=== PATIENT | female | born 1970 | race African-American/Black ===

== ENCOUNTER 2016-07-17 22:33 | Emergency (ER) | payer OTHER ==
[2016-07-17 22:35] VITALS: BP 152/90; PULSE 81; RESP 16; TEMP 98.7; O2SAT 97
--- NOTE | 2016-07-17 22:46 | PD ---
Physical Exam Time Seen by Provider: 22:45 Narrative 45 y/o female here with neck pain intermittently for several months, worse for the past few days, as well as increased urinary frequency. Denies dysuria/ abdominal pain. vital signs reviewed. Seen at triage desk. Awaiting bed placement. Data Data Last Documented VS Vital Signs Date Time Temp Pulse Resp B/P Pulse Ox O2 Delivery O2 Flow Rate FiO2 07/17/16 22:35 98.7 81 16 152/90 97 Room Air [facility] Medical Record Reviewed: Yes Supervised Visit with RUPINDER: Byron Layne July 17, 2016 22:46
--- NOTE | 2016-07-17 23:05 | PD ---
HPI Chief Complaint: Complaint Time Seen by Provider: 23:01 Travel History International Travel<30 days: No Contact w/Intl Traveler<30days: No Traveled to known affect area: No History of Present Illness HPI 45-year-old right handed black female [employer] who presents to emergency department with complains of left-sided neck pain into her left shoulder. She states that this is been going on now for several weeks to months. She stated is been worse for the past last week. She has difficulty sleeping and getting comfortable. She also goes on to state that she's been having some urinary frequency and urgency. No dysuria. She has noted some dark urine. No vaginal complains. The patient states that the pain in her neck and shoulder is worse with movement of her head. She feels more comfortable remaining still. The pain radiates into her left shoulder. Pain is sharp and cramping. Moderate in intensity. PFSH Past Medical History Medical History: Denies Significant Hx Immunizations Current: Yes Tetanus Vaccination: < 5 Years ?: Unknown LMP: 07/01/16 : 4 Para: 4 Past Surgical History Surgical History: No Previous Surgery Social History Alcohol Use: No Tobacco Use: No Substance Use: No Allergies-Medications (Allergen,Severity, Reaction): Coded Allergies: No Known Allergies (Unverified , 07/17/16) Reported Meds & Prescriptions Reported Meds & Active Scripts Active Diclofenac Sodium DR (Diclofenac Sodium) 75 Mg Tabdr 75 Mg PO BID Flexeril (Cyclobenzaprine HCl) 10 Mg Tab 10 Mg PO TID Pyridium (Phenazopyridine HCl) 200 Mg Tab 200 Mg PO Q8H PRN Macrobid (Nitrofurantoin Monoh/Nitrofur Macro) 100 Mg Cap 100 Mg PO BID Review of Systems Except as stated in HPI: all other systems reviewed are Neg Physical Exam Narrative GENERAL: Well-developed, well-nourished in no apparent distress. Nontoxic appearing. HEAD: Normocephalic, atraumatic. EYES: Pupils equal round and reactive. Extraocular motions intact. No scleral icterus. No injection or drainage. ENT: Nose clear. Throat without erythema, tonsillar hypertrophy or exudate. Uvula midline. Airway patent. NECK: Trachea midline. Supple, tender left paracervical musculature down into the trapezius and periscapular muscles., moves head freely. No central bony tenderness. Mild spasm. No central bony tenderness. CARDIOVASCULAR: Regular rate and rhythm without murmurs, gallops, or rubs. RESPIRATORY: Clear to auscultation. Breath sounds equal bilaterally. No wheezes , rales, or rhonchi. GASTROINTESTINAL: Abdomen soft, non-tender, nondistended. No hepato-splenomegaly , or palpable masses. No guarding. EXTREMITIES: No clubbing, cyanosis, or edema. No joint tenderness. BACK: Nontender without deformity. No flank tenderness. NEUROLOGICAL: Awake, alert and oriented x 3 .Cranial nerves grossly intact. Motor and sensory grossly within normal limits. Normal speech. Data Data Last Documented VS Vital Signs Date Time Temp Pulse Resp B/P Pulse Ox O2 Delivery O2 Flow Rate FiO2 07/17/16 22:35 98.7 81 16 152/90 97 Room Air Orders Urinalysis - C+S If Indicated (07/17/16 22:53) Spine, Cervical - Ltd (Ap&Lat) (07/17/16 22:56) Ed Urine Pregnancytest Poc (07/17/16 22:56) Labs Laboratory Tests Test 07/17/16 23:05 Urine Color YELLOW Urine Turbidity HAZY Urine pH 5.5 Urine Specific [place] 1.022 Urine Protein NEG mg/dL Urine Glucose (UA) NEG mg/dL Urine Ketones NEG mg/dL Urine Occult Blood NEG Urine Nitrite NEG Urine Bilirubin NEG Urine Urobilinogen LESS THAN 2.0 MG/DL Urine Leukocyte Esterase NEG Urine RBC 1 /hpf Urine WBC 1 /hpf Urine Squamous Epithelial 13 /hpf Cells Urine Bacteria RARE /hpf Urine Mucus FEW /lpf Microscopic Urinalysis Comment CULT NOT INDICATED MDM Medical Decision Making Medical Screen Exam Complete: Yes Emergency Medical Condition: Yes Medical Record Reviewed: Yes Interpretation(s) Cervical spine: Negative for acute fracture. No subluxation. Laboratory Tests Test 07/17/16 23:05 Urine Color YELLOW Urine Turbidity HAZY Urine pH 5.5 Urine Specific [place] 1.022 Urine Protein NEG mg/dL Urine Glucose (UA) NEG mg/dL Urine Ketones NEG mg/dL Urine Occult Blood NEG Urine Nitrite NEG Urine Bilirubin NEG Urine Urobilinogen LESS THAN 2.0 MG/DL Urine Leukocyte Esterase NEG Urine RBC 1 /hpf Urine WBC 1 /hpf Urine Squamous Epithelial 13 /hpf Cells Urine Bacteria RARE /hpf Urine Mucus FEW /lpf Microscopic Urinalysis Comment CULT NOT INDICATED Differential Diagnosis MDM: Cervical strain, spasm, degenerative disc disease, cervical radiculopathy, UTI, vaginitis Narrative Course Cervical spine x-ray performed. Urinalysis collected. Urine hCG test negative. X-ray of the cervical spine shows no acute fracture or subluxation. Minimal DJD. Urinalysis shows squamous cells and small amount of bacteria most likely contamination but we will go ahead and treat the patient for possible cystitis. Diagnosis Primary Impression: neck pain with spasm Additional Impression: Cystitis Patient Instructions: General Instructions Departure Forms: Tests/Procedures, Work Release Special Instructions: No work 3 days. Additional Instructions: Rest. Ice for the next 3 days followed by heat . Pyridium, Macrobid, Flexeril and Voltaren. Follow-up with a primary care doctor in one week. Return to the ER for emergencies. Med/Other Pt SpecificInfo: Prescription(s) given Scripts Diclofenac Sodium DR 75 Mg Tabdr75 Mg PO BID #20 TAB Prov:Onesimo Rascon MD 07/17/16 Cyclobenzaprine (Flexeril)10 Mg Tab10 Mg PO TID #30 TAB Prov:Onesimo Rascon MD 07/17/16 Phenazopyridine (Pyridium)200 Mg [id number] Mg PO Q8H PRN (DYSURIA) #9 TAB Prov:Onesimo Rascon MD 07/17/16 Nitrofurantoin Monohydrate Macrocrystals (Macrobid)100 Mg [id number] Mg PO BID #14 CAP Prov:Onesimo Rascon MD 07/17/16 Disposition: 01 DISCHARGE HOME Condition: Stable Link Smith July 17, 2016 23:05
[2016-07-17] MEDS ORDERED: CYCL1TAB29 PO (23:06)
[2016-07-17] MEDS ORDERED: DICL75TA PO (23:06)
[2016-07-17] MEDS ORDERED: MACR100C2 PO (23:06)
[2016-07-17] MEDS ORDERED: PYRI200T4 PO (23:06)
[2016-07-17 23:26] LABS: BACTERIA, URINE RARE /hpf; BLOOD, URINE NEG (NEG); COMMENT (UR) CULT NOT INDICATED; CULTURE IF INDICATED CULT NOT INDICATED; GLUCOSE,URINE NEG (NEG); KETONE, URINE NEG (NEG); MUCUS URINE FEW /lpf (OCC); NITRITE,URINE NEG (NEG); PH, URINE 5.5 (5.0-8.5); SQUAMOUS EPITHELIAL CELL URINE 13 /hpf (0-5); URINE COLOR YELLOW (YELLW/STRAW)
--- NOTE | 2016-07-18 00:08 | RADRPT ---
EXAM DATE/TIME: 07/17/2016 23:10 [place] COMPARISON: No previous studies available for comparison. INDICATIONS : Cervical spine pain. No known trauma. MEDICAL HISTORY : None. SURGICAL HISTORY : None. ENCOUNTER: Initial ACUITY: 4 - 6 days PAIN SCORE: 7/10 LOCATION: Bilateral neck FINDINGS: There is straightening of the normal cervical lordosis which may be secondary positioning or spasm. T here is degenerative disc disease with disc space narrowing and marginal osteophyte formation at C5-C 6. There is no evidence of acute fracture. Bony mineralization is normal.8 CONCLUSION: 1. Mild degenerative changes as described above. There is no evidence of acute fracture. Julio Quinonez MD on July 18, 2016 at 0:06 Board Certified Radiologist. This report was verified electronically.
== END 2016-07-18 00:11 | disposition home or self-care (01) ==
LOC: NEPK 22:33
DX: M54.2 Cervicalgia (principal); N30.90 Cystitis, unspecified without hematuria; M62.838 Other muscle spasm
CPT/HCPCS: 72040; 81001; 84703; 99283